=== PATIENT | male | born 1955 | race Hispanic/Latino ===

== ENCOUNTER 2021-12-02 13:01 | Inpatient (IN) | payer OTHER ==
[~2021-12-02] VITALS: Ht 172.7 cm; Wt 71.7 kg
[2021-12-02] MEDS ORDERED: DEXAMETHASONE SOD PHOS 10 MG/1 ML VIAL IV ONE (13:15)
[2021-12-02 13:31] LABS: BASOPHILS % 0.1 % (0.0-1.0); HEMATOCRIT 44.9 % (38.2-49.6); HEMOGLOBIN 14.4 g/dL (14.0-18.0); LYMPHOCYTES # (AUTO) 0.2 (1.0-3.2); LYMPHOCYTES % 1.1 % (18.0-39.1); MEAN CORPUSCULAR HGB CONC 32.1 g/dL (31-35); MEAN CORPUSCULAR VOLUME 96.6 fL (81-99); MONOCYTES # (AUTO) 0.3 (0.2-0.8); MONOCYTES % 1.7 % (4.4-11.3); NEUTROPHILS # (AUTO) 17.4 (2.1-6.9); NEUTROPHILS % 96.8 % (38.7-80.0); PLATELET COUNT 123 x10e3/uL (140-360); RED BLOOD COUNT 4.65 x10e6/uL (4.3-5.7); RED CELL DISTRIBUTION WIDTH 13.6 % (11.7-14.4)
[2021-12-02 13:50] LABS: ALBUMIN/GLOBULIN RATIO 0.7 (0.8-2.0); ANION GAP 23.6 mmol/L (8-16); CALCIUM 9.7 mg/dL (8.4-10.2); CREATININE, SERUM 2.07 mg/dL (0.72-1.25); POTASSIUM 4.6 mmol/L (3.5-5.1)
[2021-12-02] MEDS: DEXTROSE 5%/0.45% SOD CHL 1,000 ML IV SCH ×3 (14:30→22:07)
[2021-12-02] MEDS ORDERED: MAGNESIUM SULF 1GRAM/DEXTROSE 100 ML IV PRN (14:30)
[2021-12-02] MEDS ORDERED: POTASSIUM CHLORIDE 20MEQ/100ML 200 ML IV PRN (14:30)
[2021-12-02] MEDS ORDERED: INSULIN REGULAR, HUMAN 3ML VL 100 UNIT in SODIUM CHLORIDE 0.9% 99 ML IV SCH ×2 (14:45)
[2021-12-02] MEDS: SODIUM CHLORIDE 0.9% 1000ML 1,000 ML IV SCH ×2 (14:50→18:30)
[2021-12-02 15:09] LABS: ABG HCO3 23 mmol/L (22-26); ABG PCO2 32 mmHg (35-45); ABG PH 7.47 (7.35-7.45); ABG PO2 43 mmHg (80-105); ABG TCO2 24
[2021-12-02] MEDS ORDERED: CEFTRIAXONE 1 GM in SODIUM CHLORIDE 0.9% 50ML 50 ML IV SCH (16:00)
[2021-12-02] MEDS ORDERED: INSULIN REGULAR, HUMAN 100 UNIT/1 ML IV ONE (16:15)
[2021-12-02] MEDS: CEFTRIAXONE 2 GM in SODIUM CHLORIDE 0.9% 100 ML IV SCH (16:28)
[2021-12-02] MEDS ORDERED: DEXAMETHASONE 10MG/ML PF INJ IV ONE (16:30)
[2021-12-02] MEDS: ASCORBIC ACID 500 MG TAB PO SCH (16:45)
[2021-12-02] MEDS ORDERED: ENOXAPARIN INJ 80 MG/0.8 ML SYR SC SCH (17:00)
[2021-12-02] MEDS: ENOXAPARIN 30 MG/0.3 ML SYR SC SCH (17:57)
[2021-12-02] MEDS ORDERED: REMDESIVIR 100MG 200 MG in SODIUM CHLORIDE 0.9% 100 ML IV ONE (18:00)
[2021-12-02 18:40] LABS: ANION GAP 18.1 mmol/L (8-16); CALCIUM 7.6 mg/dL (8.4-10.2); CREATININE, SERUM 1.38 mg/dL (0.72-1.25); MAGNESIUM 2.2 MG/DL (1.3-2.1); POTASSIUM 3.1 mmol/L (3.5-5.1)
[2021-12-02] MEDS ORDERED: POTASSIUM CHLORIDE 20MEQ/100ML 100 ML IV ONE (20:15)
[2021-12-02] MEDS ORDERED: POTASSIUM CHLORIDE 20MEQ/100ML 100 ML ONE (20:16)
[2021-12-02] MEDS ORDERED: ACETAMINOPHEN 1000 MG/100 ML 100 ML IV ONE (20:56)
[2021-12-02] MEDS ORDERED: ACETAMINOPHEN 1000 MG/100 ML IV STA (21:07)
[2021-12-02] MEDS ORDERED: IBUPROFEN 800MG/ 200ML 800 MG in SODIUM CHLORIDE 0.9% 250ML 250 ML IV PRN (21:13)
[2021-12-02] MEDS ORDERED: IBUPROFEN 800MG/ 200ML 200 ML IV ONE (21:25)
[2021-12-02] MEDS: HUMAN IV SCH ×2 (22:00)
[2021-12-02] MEDS: [UNRECOGNIZED DRUG - OTHER] IV SCH ×2 (22:00)
[2021-12-02] MEDS: INSULIN REGULAR IV SCH ×2 (22:00)
[2021-12-02] MEDS: SODIUM CHLORIDE 0.9% IV SCH ×2 (22:00)
[2021-12-02] MEDS ORDERED: DEXTROSE 50% SYRINGE 50 ML IV PRN (22:15)
[2021-12-02] MEDS ORDERED: INSULIN REGULAR, HUMAN 3ML VL 100 UNIT in SODIUM CHLORIDE 0.45% 100 ML 100 ML IV SCH ×2 (22:15)
[2021-12-02 22:27] LABS: ANION GAP 20.7 mmol/L (8-16); CALCIUM 9.5 mg/dL (8.4-10.2); CREATININE, SERUM 1.75 mg/dL (0.72-1.25); MAGNESIUM 2.4 MG/DL (1.3-2.1); POTASSIUM 3.7 mmol/L (3.5-5.1)
[2021-12-03] VITALS (15 sets, daily range): BP systolic 107–164; BP diastolic 34–94
[2021-12-03] MEDS: SODIUM CHLORIDE 0.9% 1000ML 1,000 ML IV SCH ×4 (00:07→20:07)
[2021-12-03 02:26] LABS: ANION GAP 18.3 mmol/L (8-16); CALCIUM 9.5 mg/dL (8.4-10.2); CREATININE, SERUM 1.66 mg/dL (0.72-1.25); MAGNESIUM 2.5 MG/DL (1.3-2.1); POTASSIUM 4.3 mmol/L (3.5-5.1)
[2021-12-03] MEDS: SODIUM CHLORIDE 0.9% IV SCH ×2 (04:40)
[2021-12-03] MEDS: HUMAN IV SCH ×2 (04:40)
[2021-12-03] MEDS: [UNRECOGNIZED DRUG - OTHER] IV SCH ×2 (04:40)
[2021-12-03] MEDS: INSULIN REGULAR IV SCH ×2 (04:40)
[2021-12-03] MEDS ORDERED: INSULIN REGULAR IN 0.9 % NACL 100 ML IV ONE (04:43)
[2021-12-03 06:20] LABS: BASOPHILS % 0.2 % (0.0-1.0); HEMATOCRIT 40.3 % (38.2-49.6); HEMOGLOBIN 13.4 g/dL (14.0-18.0); LYMPHOCYTES # (AUTO) 0.1 (1.0-3.2); LYMPHOCYTES % 0.9 % (18.0-39.1); MEAN CORPUSCULAR HEMOGLOBIN 31.1 pg (28-32); MEAN CORPUSCULAR HGB CONC 33.3 g/dL (31-35); MEAN CORPUSCULAR VOLUME 93.5 fL (81-99); MONOCYTES # (AUTO) 0.2 (0.2-0.8); MONOCYTES % 0.9 % (4.4-11.3); NEUTROPHILS % 97.6 % (38.7-80.0); PLATELET COUNT 98 x10e3/uL (140-360); RED BLOOD COUNT 4.31 x10e6/uL (4.3-5.7); RED CELL DISTRIBUTION WIDTH 13.5 % (11.7-14.4)
[2021-12-03 06:40] LABS: CALCIUM 9.6 mg/dL (8.4-10.2); CREATININE, SERUM 1.62 mg/dL (0.72-1.25); MAGNESIUM 2.6 MG/DL (1.3-2.1)
[2021-12-03] MEDS: ASCORBIC ACID 500 MG TAB PO SCH ×2 (09:41→18:17)
[2021-12-03] MEDS: DEXAMETHASONE SOD PHOS 10 MG/1 ML VIAL IV SCH (09:41)
[2021-12-03] MEDS: ZINC SULFATE 50 MG CAP PO SCH (09:41)
[2021-12-03] MEDS: DEXTROSE 5%/0.45% SOD CHL 1,000 ML IV SCH ×2 (09:41→18:19)
[2021-12-03 11:27] LABS: BAND NEUTROPHILS % (MANUAL) 4 %; LYMPHOCYTES % (MANUAL) 1 % (19-48); NEUTROPHILS % (MANUAL) 95 % (40-74); PLATELET ESTIMATE MODERATELY DECREASED; PLATELET MORPHOLOGY COMMENT NORMAL
[2021-12-03 11:28] LABS: RBC MORPHOLOGY COMMENT NORMAL
[2021-12-03 12:16] LABS: ALBUMIN 2.4 g/dL (3.5-5.0); ALBUMIN/GLOBULIN RATIO 0.6 (0.8-2.0); CALCIUM 9.6 mg/dL (8.4-10.2); CREATININE, SERUM 1.71 mg/dL (0.72-1.25)
[2021-12-03] MEDS ORDERED: PHENYLEPHRINE 10MG/ML VIAL 40 MG in DEXTROSE 5% 250ML 246 ML IV SCH (14:15)
[2021-12-03] MEDS: REMDESIVIR 100MG 100 MG in SODIUM CHLORIDE 0.9% 100 ML IV SCH (14:58)
[2021-12-03] MEDS ORDERED: FLOMAX0.4 MG PO (15:53)
[2021-12-03] MEDS ORDERED: LEVOTHYROXINE50 MCG PO (15:53)
[2021-12-03] MEDS ORDERED: COREG3.125 MG PO (15:53)
[2021-12-03] MEDS ORDERED: WARFARIN SODIUM2 MG PO (15:53)
[2021-12-03] MEDS: DEXMEDETOMIDINE 400MCG/NS100ML 100 ML IV PRN (16:00)
[2021-12-03 17:34] LABS: CALCIUM 9.6 mg/dL (8.4-10.2); CREATININE, SERUM 1.63 mg/dL (0.72-1.25)
[2021-12-03] MEDS: CEFTRIAXONE 2 GM in SODIUM CHLORIDE 0.9% 100 ML IV SCH (18:15)
[2021-12-03] MEDS: ENOXAPARIN 30 MG/0.3 ML SYR SC SCH (18:19)
[2021-12-03 19:31] LABS: ANION GAP 16.1 mmol/L (8-16); CALCIUM 9.3 mg/dL (8.4-10.2); CREATININE, SERUM 1.6 mg/dL (0.72-1.25); MAGNESIUM 2.5 MG/DL (1.3-2.1); POTASSIUM 4.1 mmol/L (3.5-5.1)
[2021-12-04] VITALS (25 sets, daily range): BP systolic 125–165; BP diastolic 52–91
[2021-12-04 00:47] LABS: ANION GAP 14.2 mmol/L (8-16); CALCIUM 9.4 mg/dL (8.4-10.2); CREATININE, SERUM 1.52 mg/dL (0.72-1.25); MAGNESIUM 2.4 MG/DL (1.3-2.1); POTASSIUM 4.2 mmol/L (3.5-5.1)
[2021-12-04] MEDS: SODIUM CHLORIDE 0.9% 1000ML 1,000 ML IV SCH ×3 (02:47→16:07)
[2021-12-04] MEDS: DEXMEDETOMIDINE 400MCG/NS100ML 100 ML IV PRN (04:07)
[2021-12-04] MEDS: DEXTROSE 5%/0.45% SOD CHL 1,000 ML IV SCH ×2 (04:33→15:57)
[2021-12-04 06:00] LABS: BASOPHILS % 0.2 % (0.0-1.0); HEMATOCRIT 39.2 % (38.2-49.6); HEMOGLOBIN 12.3 g/dL (14.0-18.0); LYMPHOCYTES # (AUTO) 0.1 (1.0-3.2); LYMPHOCYTES % 1.1 % (18.0-39.1); MEAN CORPUSCULAR HEMOGLOBIN 31.1 pg (28-32); MEAN CORPUSCULAR HGB CONC 31.4 g/dL (31-35); MONOCYTES # (AUTO) 0.2 (0.2-0.8); NEUTROPHILS # (AUTO) 11.4 (2.1-6.9); NEUTROPHILS % 96.4 % (38.7-80.0); PLATELET COUNT 85 x10e3/uL (140-360); RED BLOOD COUNT 3.95 x10e6/uL (4.3-5.7); RED CELL DISTRIBUTION WIDTH 13.7 % (11.7-14.4)
[2021-12-04 06:19] LABS: ALBUMIN 2.1 g/dL (3.5-5.0); ALBUMIN/GLOBULIN RATIO 0.6 (0.8-2.0); ANION GAP 16.2 mmol/L (8-16); CALCIUM 7.9 mg/dL (8.4-10.2); CREATININE, SERUM 1.33 mg/dL (0.72-1.25); POTASSIUM 5.2 mmol/L (3.5-5.1)
[2021-12-04] MEDS ORDERED: PRAVASTATIN SOD40 MG PO (07:33)
[2021-12-04] MEDS ORDERED: VITAMIN D3 COM1 EACH (07:33)
[2021-12-04] MEDS ORDERED: PREDNISONE5 MG PO (07:33)
[2021-12-04] MEDS ORDERED: GABAPENTIN300 MG PO (07:33)
[2021-12-04] MEDS ORDERED: ALLOPURINOL300 MG PO (07:33)
[2021-12-04] MEDS ORDERED: CLONIDINE HCL0.1 MG PO (07:33)
[2021-12-04] MEDS: DEXAMETHASONE SOD PHOS 10 MG/1 ML VIAL IV SCH (08:01)
[2021-12-04] MEDS: ZINC SULFATE 50 MG CAP PO SCH (08:01)
[2021-12-04] MEDS: ASCORBIC ACID 500 MG TAB PO SCH ×2 (08:01→17:00)
[2021-12-04 09:11] LABS: ALBUMIN 2.1 g/dL (3.5-5.0); ALBUMIN/GLOBULIN RATIO 0.6 (0.8-2.0); ANION GAP 13.3 mmol/L (8-16); CALCIUM 9.1 mg/dL (8.4-10.2); CREATININE, SERUM 1.28 mg/dL (0.72-1.25); POTASSIUM 4.3 mmol/L (3.5-5.1)
[2021-12-04] MEDS ORDERED: HEPARIN 25,000 UNIT 800 UNIT in DEXTROSE 5% 250ML 250 ML IV SCH (10:30)
[2021-12-04 12:33] LABS: ANION GAP 14.2 mmol/L (8-16); CALCIUM 9.2 mg/dL (8.4-10.2); CREATININE, SERUM 1.23 mg/dL (0.72-1.25); INR 5.16; MAGNESIUM 2.5 MG/DL (1.3-2.1); PARTIAL THROMBOPLASTIN TIME 64.8 seconds (23.8-35.5); POTASSIUM 4.2 mmol/L (3.5-5.1); PROTHROMBIN TIME 50.1 seconds (11.9-14.5)
[2021-12-04 12:41] LABS: CLARITY,URINE CLOUDY (CLEAR); COLOR,URINE YELLOW (YELLOW); KETONES,URINE NEGATIVE (NEGATIVE); LEUKOCYTE ESTERASE ,URINE NEGATIVE (NEGATIVE); NITRITE,URINE NEGATIVE (NEGATIVE); PROTEIN,URINE DIPSTICK 1+ (NEGATIVE); URINE UROBILINOGEN 0.2 mg/dL (0.2 - 1)
[2021-12-04 12:42] LABS: BACTERIA,URINE FEW /HPF; EPITHELIAL CELLS,URINE FEW /LPF; RBC,URINE >50 /HPF (0-5); WBC,URINE (MAN) 0-5 /HPF (0-5)
[2021-12-04] MEDS: LEVOTHYROXINE SODIUM 50 MCG TAB PO SCH (12:43)
[2021-12-04] MEDS ORDERED: FUROSEMIDE INJ 10 MG/ML 2 ML VIAL IV ONE (13:45)
[2021-12-04] MEDS: REMDESIVIR 100MG 100 MG in SODIUM CHLORIDE 0.9% 100 ML IV SCH (14:05)
[2021-12-04] MEDS: CARVEDILOL 3.125 MG TAB PO SCH ×2 (17:00→17:03)
[2021-12-04] MEDS ORDERED: ONDANSETRON HCL INJ 2MG/ML 2ML 2 MG/ML VIAL IV ONE (17:30)
[2021-12-04] MEDS: CEFTRIAXONE 2 GM in SODIUM CHLORIDE 0.9% 100 ML IV SCH (17:34)
[2021-12-04 18:00] LABS: BASOPHILS % 0.1 % (0.0-1.0); HEMATOCRIT 41.3 % (38.2-49.6); LYMPHOCYTES # (AUTO) 0.1 (1.0-3.2); LYMPHOCYTES % 0.7 % (18.0-39.1); MEAN CORPUSCULAR HGB CONC 31.5 g/dL (31-35); MEAN CORPUSCULAR VOLUME 98.3 fL (81-99); MONOCYTES # (AUTO) 0.3 (0.2-0.8); NEUTROPHILS # (AUTO) 13.7 (2.1-6.9); NEUTROPHILS % 96.6 % (38.7-80.0); PLATELET COUNT 94 x10e3/uL (140-360); RED CELL DISTRIBUTION WIDTH 13.9 % (11.7-14.4)
[2021-12-04 19:42] LABS: ANION GAP 16.8 mmol/L (8-16); CALCIUM 9.2 mg/dL (8.4-10.2); CREATININE, SERUM 1.21 mg/dL (0.72-1.25); MAGNESIUM 2.3 MG/DL (1.3-2.1); POTASSIUM 3.8 mmol/L (3.5-5.1)
[2021-12-04] MEDS ORDERED: SODIUM CHLORIDE 0.9% 250ML 250 ML ONE (20:42)
[2021-12-04] MEDS ORDERED: FUROSEMIDE INJ 10 MG/ML 4 ML VIAL IV ONE (22:00)
[2021-12-05] VITALS (25 sets, daily range): BP systolic 114–175; BP diastolic 45–83
[2021-12-05] MEDS ORDERED: SODIUM CHLORIDE 0.9% 250ML 250 ML ONE ×2 (00:04→23:15)
[2021-12-05] MEDS ORDERED: METOCLOPRAMIDE HCL 10 MG/2ML VIAL ONE (03:09)
[2021-12-05] MEDS ORDERED: SODIUM CHLORIDE 0.9% 100 ML ONE (03:10)
[2021-12-05] MEDS ORDERED: METOCLOPRAMIDE HCL 10 MG/2ML VIAL IV ONE (03:15)
[2021-12-05 03:56] LABS: INR 3.44; PROTHROMBIN TIME 36.5 seconds (11.9-14.5)
[2021-12-05 03:57] LABS: ANION GAP 14.1 mmol/L (8-16); CALCIUM 8.6 mg/dL (8.4-10.2); CREATININE, SERUM 1.44 mg/dL (0.72-1.25); MAGNESIUM 2.1 MG/DL (1.3-2.1); POTASSIUM 4.1 mmol/L (3.5-5.1)
[2021-12-05 03:57] LABS: PARTIAL THROMBOPLASTIN TIME 48.2 seconds (23.8-35.5)
[2021-12-05 04:48] LABS: BASOPHILS % 0.1 % (0.0-1.0); HEMATOCRIT 28.6 % (38.2-49.6); HEMOGLOBIN 8.8 g/dL (14.0-18.0); LYMPHOCYTES # (AUTO) 0.1 (1.0-3.2); LYMPHOCYTES % 0.8 % (18.0-39.1); MEAN CORPUSCULAR HEMOGLOBIN 31.3 pg (28-32); MEAN CORPUSCULAR HGB CONC 30.8 g/dL (31-35); MEAN CORPUSCULAR VOLUME 101.8 fL (81-99); MONOCYTES # (AUTO) 0.6 (0.2-0.8); MONOCYTES % 3.6 % (4.4-11.3); NEUTROPHILS # (AUTO) 14.6 (2.1-6.9); PLATELET COUNT 98 x10e3/uL (140-360); RED BLOOD COUNT 2.81 x10e6/uL (4.3-5.7)
[2021-12-05] MEDS: DEXTROSE 5%/0.45% SOD CHL 1,000 ML IV SCH ×2 (05:22→09:13)
[2021-12-05] MEDS: Pantoprazole IV 80 MG in SODIUM CHLORIDE 0.9% 100 ML IV SCH ×4 (05:24→23:49)
[2021-12-05] MEDS: SODIUM CHLORIDE 0.9% 1000ML 1,000 ML IV SCH ×3 (05:58→12:07)
[2021-12-05] MEDS: LEVOTHYROXINE SODIUM 50 MCG TAB PO SCH (05:58)
[2021-12-05] MEDS: DEXAMETHASONE SOD PHOS 10 MG/1 ML VIAL IV SCH (09:12)
[2021-12-05] MEDS: ASCORBIC ACID 500 MG TAB PO SCH ×2 (09:12→17:49)
[2021-12-05] MEDS: CARVEDILOL 3.125 MG TAB PO SCH ×2 (09:12→17:49)
[2021-12-05 09:13] LABS: BASOPHILS % 0.1 % (0.0-1.0); HEMATOCRIT 28.6 % (38.2-49.6); HEMOGLOBIN 8.9 g/dL (14.0-18.0); LYMPHOCYTES # (AUTO) 0.1 (1.0-3.2); LYMPHOCYTES % 0.6 % (18.0-39.1); MEAN CORPUSCULAR HGB CONC 31.1 g/dL (31-35); MEAN CORPUSCULAR VOLUME 99.7 fL (81-99); MONOCYTES # (AUTO) 0.6 (0.2-0.8); MONOCYTES % 3.6 % (4.4-11.3); NEUTROPHILS # (AUTO) 14.5 (2.1-6.9); NEUTROPHILS % 94.9 % (38.7-80.0); PLATELET COUNT 112 x10e3/uL (140-360); RED BLOOD COUNT 2.87 x10e6/uL (4.3-5.7); RED CELL DISTRIBUTION WIDTH 13.8 % (11.7-14.4)
[2021-12-05] MEDS: ZINC SULFATE 50 MG CAP PO SCH (09:13)
[2021-12-05] MEDS: ALLOPURINOL 300 MG TAB PO SCH (09:13)
[2021-12-05 09:36] LABS: ALBUMIN/GLOBULIN RATIO 0.7 (0.8-2.0); CALCIUM 8.3 mg/dL (8.4-10.2); CREATININE, SERUM 1.47 mg/dL (0.72-1.25)
[2021-12-05] MEDS ORDERED: SODIUM CHLORIDE 0.9% 50ML 50 ML ONE (10:09)
[2021-12-05] MEDS: METOCLOPRAMIDE HCL 10 MG/2ML VIAL IV SCH ×3 (12:10→23:49)
[2021-12-05] MEDS: REMDESIVIR 100MG 100 MG in SODIUM CHLORIDE 0.9% 100 ML IV SCH (14:09)
[2021-12-05 14:13] LABS: BASOPHILS % 0.1 % (0.0-1.0); HEMATOCRIT 27.6 % (38.2-49.6); HEMOGLOBIN 8.3 g/dL (14.0-18.0); LYMPHOCYTES # (AUTO) 0.1 (1.0-3.2); LYMPHOCYTES % 0.5 % (18.0-39.1); MEAN CORPUSCULAR HEMOGLOBIN 30.2 pg (28-32); MEAN CORPUSCULAR HGB CONC 30.1 g/dL (31-35); MEAN CORPUSCULAR VOLUME 100.4 fL (81-99); MONOCYTES # (AUTO) 0.5 (0.2-0.8); MONOCYTES % 3.5 % (4.4-11.3); NEUTROPHILS # (AUTO) 12.1 (2.1-6.9); NEUTROPHILS % 95.4 % (38.7-80.0); PLATELET COUNT 88 x10e3/uL (140-360); RED BLOOD COUNT 2.75 x10e6/uL (4.3-5.7); RED CELL DISTRIBUTION WIDTH 14.1 % (11.7-14.4)
[2021-12-05 14:24] LABS: INR 2.68
[2021-12-05 14:33] LABS: ALBUMIN 2.4 g/dL (3.5-5.0); ALBUMIN/GLOBULIN RATIO 0.8 (0.8-2.0); ANION GAP 12.9 mmol/L (8-16); CALCIUM 8.9 mg/dL (8.4-10.2); CREATININE, SERUM 1.5 mg/dL (0.72-1.25); POTASSIUM 3.9 mmol/L (3.5-5.1)
[2021-12-05] MEDS: CEFTRIAXONE 2 GM in SODIUM CHLORIDE 0.9% 100 ML IV SCH (17:49)
[2021-12-06] VITALS (24 sets, daily range): BP systolic 134–164; BP diastolic 64–91
[2021-12-06] MEDS ORDERED: SODIUM CHLORIDE 0.9% 100 ML ONE (00:59)
[2021-12-06] MEDS ORDERED: INSULIN REGULAR, HUMAN 100 UNIT/1 ML ONE (00:59)
[2021-12-06 01:00] LABS: INR 2.72; PROTHROMBIN TIME 30.4 seconds (11.9-14.5)
[2021-12-06] MEDS ORDERED: SODIUM CHLORIDE 0.9% 250ML 250 ML ONE (05:29)
[2021-12-06 06:01] LABS: BASOPHILS % 0.1 % (0.0-1.0); HEMATOCRIT 27.9 % (38.2-49.6); HEMOGLOBIN 8.5 g/dL (14.0-18.0); LYMPHOCYTES # (AUTO) 0.1 (1.0-3.2); LYMPHOCYTES % 1.2 % (18.0-39.1); MEAN CORPUSCULAR HEMOGLOBIN 29.8 pg (28-32); MEAN CORPUSCULAR HGB CONC 30.5 g/dL (31-35); MEAN CORPUSCULAR VOLUME 97.9 fL (81-99); MONOCYTES # (AUTO) 0.3 (0.2-0.8); MONOCYTES % 4.7 % (4.4-11.3); NEUTROPHILS # (AUTO) 6.4 (2.1-6.9); NEUTROPHILS % 93.6 % (38.7-80.0); PLATELET COUNT 61 x10e3/uL (140-360); RED BLOOD COUNT 2.85 x10e6/uL (4.3-5.7); RED CELL DISTRIBUTION WIDTH 17.2 % (11.7-14.4)
[2021-12-06] MEDS: METOCLOPRAMIDE HCL 10 MG/2ML VIAL IV SCH ×3 (06:11→17:36)
[2021-12-06] MEDS: LEVOTHYROXINE SODIUM 50 MCG TAB PO SCH (06:11)
[2021-12-06] MEDS: CARVEDILOL 3.125 MG TAB PO SCH ×2 (06:15→15:56)
[2021-12-06 06:44] LABS: ALBUMIN 2.3 g/dL (3.5-5.0); ALBUMIN/GLOBULIN RATIO 0.8 (0.8-2.0); ANION GAP 12.1 mmol/L (8-16); CREATININE, SERUM 1.37 mg/dL (0.72-1.25); POTASSIUM 4.1 mmol/L (3.5-5.1)
[2021-12-06] MEDS: ASCORBIC ACID 500 MG TAB PO SCH ×2 (09:00→15:56)
[2021-12-06] MEDS: ALLOPURINOL 300 MG TAB PO SCH (09:00)
[2021-12-06] MEDS: ZINC SULFATE 50 MG CAP PO SCH (09:00)
[2021-12-06] MEDS: DEXAMETHASONE SOD PHOS 10 MG/1 ML VIAL IV SCH (09:45)
[2021-12-06] MEDS ORDERED: STERILE WATER IV SCH (10:15)
[2021-12-06] MEDS: DEXMEDETOMIDINE 400MCG/NS100ML 100 ML IV PRN (10:53)
[2021-12-06] MEDS ORDERED: DEXTROSE 5% 1,000 ML IV SCH (12:00)
[2021-12-06] MEDS: Pantoprazole IV 80 MG in SODIUM CHLORIDE 0.9% 100 ML IV SCH ×2 (12:47→20:42)
[2021-12-06] MEDS: REMDESIVIR 100MG 100 MG in SODIUM CHLORIDE 0.9% 100 ML IV SCH (14:41)
[2021-12-06] MEDS: DEXTROSE 5% 1,000 ML IV SCH (14:41)
[2021-12-06] MEDS: CEFTRIAXONE 2 GM in SODIUM CHLORIDE 0.9% 100 ML IV SCH (15:55)
[2021-12-06 16:11] LABS: ALBUMIN 2.5 g/dL (3.5-5.0); ALBUMIN/GLOBULIN RATIO 0.9 (0.8-2.0); CALCIUM 8.6 mg/dL (8.4-10.2); CREATININE, SERUM 1.27 mg/dL (0.72-1.25)
[2021-12-06 20:12] LABS: ABG HCO3 27 mmol/L (22-26); ABG PCO2 45 mmHg (35-45); ABG PH 7.38 (7.35-7.45); ABG PO2 169 mmHg (80-105); ABG TCO2 28
[2021-12-06] MEDS ORDERED: ZIPRASIDONE 20 MG VIAL IM STA (20:16)
[2021-12-07] VITALS (25 sets, daily range): BP systolic 139–188; BP diastolic 58–96
[2021-12-07 00:31] LABS: INR 2.56; PARTIAL THROMBOPLASTIN TIME 34.7 seconds (23.8-35.5)
[2021-12-07] MEDS: DEXTROSE 5% 1,000 ML IV SCH ×3 (00:31→21:12)
[2021-12-07] MEDS: METOCLOPRAMIDE HCL 10 MG/2ML VIAL IV SCH ×4 (00:33→16:59)
[2021-12-07] MEDS ORDERED: PHYTONADIONE 10 MG/ML AMP IV ONE ×2 (01:00→08:30)
[2021-12-07] MEDS ORDERED: PHYTONADIONE 10MG/ML 20 MG in SODIUM CHLORIDE 0.9% 50ML 50 ML IV ONE ×2 (01:15→08:45)
[2021-12-07] MEDS: LEVOTHYROXINE SODIUM 50 MCG TAB PO SCH (04:41)
[2021-12-07] MEDS: Pantoprazole IV 80 MG in SODIUM CHLORIDE 0.9% 100 ML IV SCH ×2 (04:41→15:00)
[2021-12-07 05:06] LABS: HEMATOCRIT 25.9 % (38.2-49.6); LYMPHOCYTES # (AUTO) 0.1 (1.0-3.2); LYMPHOCYTES % 1.3 % (18.0-39.1); MEAN CORPUSCULAR HEMOGLOBIN 30.3 pg (28-32); MEAN CORPUSCULAR HGB CONC 30.9 g/dL (31-35); MEAN CORPUSCULAR VOLUME 98.1 fL (81-99); MONOCYTES # (AUTO) 0.3 (0.2-0.8); MONOCYTES % 4.6 % (4.4-11.3); NEUTROPHILS # (AUTO) 6.3 (2.1-6.9); NEUTROPHILS % 93.7 % (38.7-80.0); PLATELET COUNT 50 x10e3/uL (140-360); RED BLOOD COUNT 2.64 x10e6/uL (4.3-5.7); RED CELL DISTRIBUTION WIDTH 17.5 % (11.7-14.4)
[2021-12-07] MEDS: HYDRALAZINE HCL 20 MG/ML VIAL IV PRN ×4 (06:17→21:13)
[2021-12-07] MEDS: DEXMEDETOMIDINE 400MCG/NS100ML 100 ML IV PRN (07:11)
[2021-12-07 07:17] LABS: INR 2.12
[2021-12-07 07:37] LABS: ALBUMIN 2.5 g/dL (3.5-5.0); ALBUMIN/GLOBULIN RATIO 0.9 (0.8-2.0); CALCIUM 8.8 mg/dL (8.4-10.2); CREATININE, SERUM 1.16 mg/dL (0.72-1.25)
[2021-12-07] MEDS ORDERED: FUROSEMIDE INJ 10 MG/ML 4 ML VIAL IV ONE (08:15)
[2021-12-07] MEDS ORDERED: CHLOROTHIAZIDE SODIUM 500 MG VIAL IV ONE (08:25)
[2021-12-07] MEDS: DEXAMETHASONE SOD PHOS 10 MG/1 ML VIAL IV SCH (08:31)
[2021-12-07] MEDS: ASCORBIC ACID 500 MG TAB PO SCH ×2 (09:00→16:59)
[2021-12-07] MEDS: ZINC SULFATE 50 MG CAP PO SCH (09:00)
[2021-12-07] MEDS: CARVEDILOL 3.125 MG TAB PO SCH ×2 (10:52→16:23)
[2021-12-07] MEDS: ALLOPURINOL 300 MG TAB PO SCH (10:57)
[2021-12-07] MEDS: HYDRALAZINE HCL 25 MG TAB PO SCH ×2 (10:57→16:23)
[2021-12-07 12:31] LABS: ALBUMIN 2.7 g/dL (3.5-5.0); ALBUMIN/GLOBULIN RATIO 0.9 (0.8-2.0); ANION GAP 12.5 mmol/L (8-16); CALCIUM 8.8 mg/dL (8.4-10.2); CREATININE, SERUM 1.29 mg/dL (0.72-1.25); POTASSIUM 3.5 mmol/L (3.5-5.1)
[2021-12-07] MEDS ORDERED: SODIUM CHLORIDE 0.9% 100 ML ONE (15:10)
[2021-12-07] MEDS ORDERED: POTASSIUM CHLORIDE 20 MEQ TAB CR PO NR (15:15)
[2021-12-07] MEDS: CEFTRIAXONE 2 GM in SODIUM CHLORIDE 0.9% 100 ML IV SCH (16:23)
[2021-12-07 19:42] LABS: ALBUMIN 2.6 g/dL (3.5-5.0); ALBUMIN/GLOBULIN RATIO 0.8 (0.8-2.0); ANION GAP 14.4 mmol/L (8-16); CREATININE, SERUM 1.33 mg/dL (0.72-1.25); POTASSIUM 3.4 mmol/L (3.5-5.1)
[2021-12-08] VITALS (28 sets, daily range): BP systolic 115–192; BP diastolic 49–87
[2021-12-08] MEDS: HYDRALAZINE HCL 20 MG/ML VIAL IV PRN ×3 (01:16→13:52)
[2021-12-08] MEDS: METOCLOPRAMIDE HCL 10 MG/2ML VIAL IV SCH ×5 (01:17→23:26)
[2021-12-08] MEDS: Pantoprazole IV 80 MG in SODIUM CHLORIDE 0.9% 100 ML IV SCH ×3 (01:17→21:00)
[2021-12-08 04:49] LABS: BASOPHILS % 0.1 % (0.0-1.0); HEMATOCRIT 34.2 % (38.2-49.6); HEMOGLOBIN 10.4 g/dL (14.0-18.0); LYMPHOCYTES # (AUTO) 0.1 (1.0-3.2); LYMPHOCYTES % 0.7 % (18.0-39.1); MEAN CORPUSCULAR HEMOGLOBIN 29.6 pg (28-32); MEAN CORPUSCULAR HGB CONC 30.4 g/dL (31-35); MEAN CORPUSCULAR VOLUME 97.4 fL (81-99); MONOCYTES # (AUTO) 0.6 (0.2-0.8); MONOCYTES % 3.6 % (4.4-11.3); NEUTROPHILS # (AUTO) 14.4 (2.1-6.9); NEUTROPHILS % 94.2 % (38.7-80.0); PLATELET COUNT 114 x10e3/uL (140-360); RED BLOOD COUNT 3.51 x10e6/uL (4.3-5.7); RED CELL DISTRIBUTION WIDTH 17.1 % (11.7-14.4)
[2021-12-08 04:59] LABS: INR 1.38; PROTHROMBIN TIME 17.9 seconds (11.9-14.5)
[2021-12-08 05:06] LABS: ALBUMIN 2.7 g/dL (3.5-5.0); ALBUMIN/GLOBULIN RATIO 0.8 (0.8-2.0); ANION GAP 13.5 mmol/L (8-16); CALCIUM 9.3 mg/dL (8.4-10.2); CREATININE, SERUM 1.35 mg/dL (0.72-1.25); POTASSIUM 3.5 mmol/L (3.5-5.1)
[2021-12-08] MEDS: LEVOTHYROXINE SODIUM 50 MCG TAB PO SCH (06:30)
[2021-12-08] MEDS: CARVEDILOL 3.125 MG TAB PO SCH ×2 (08:00→17:34)
[2021-12-08] MEDS: DEXAMETHASONE SOD PHOS 10 MG/1 ML VIAL IV SCH (08:04)
[2021-12-08] MEDS: ALLOPURINOL 300 MG TAB PO SCH (09:00)
[2021-12-08] MEDS: HYDRALAZINE HCL 25 MG TAB PO SCH ×2 (09:00→17:30)
[2021-12-08] MEDS: ASCORBIC ACID 500 MG TAB PO SCH ×2 (09:00→17:31)
[2021-12-08] MEDS: DEXTROSE 5% 1,000 ML IV SCH ×2 (10:16→19:23)
[2021-12-08] MEDS ORDERED: POTASSIUM CHLORIDE 20MEQ/100ML 100 ML IV ONE (10:30)
[2021-12-08] MEDS ORDERED: FUROSEMIDE INJ 10 MG/ML 4 ML VIAL IV ONE (10:30)
[2021-12-08] MEDS ORDERED: SODIUM CHLORIDE 0.9% 100 ML ONE (11:53)
[2021-12-08 14:49] LABS: ALBUMIN 2.7 g/dL (3.5-5.0); ALBUMIN/GLOBULIN RATIO 0.8 (0.8-2.0); ANION GAP 14.7 mmol/L (8-16); CALCIUM 9.2 mg/dL (8.4-10.2); CREATININE, SERUM 1.38 mg/dL (0.72-1.25); POTASSIUM 3.7 mmol/L (3.5-5.1)
[2021-12-08] MEDS ORDERED: MYCOPHENOLATE MOFETIL 250 MG CAP PO SCH (17:00)
[2021-12-08] MEDS: CEFTRIAXONE 2 GM in SODIUM CHLORIDE 0.9% 100 ML IV SCH (17:00)
[2021-12-08] MEDS: ZINC SULFATE 50 MG CAP PO SCH (17:30)
[2021-12-08 19:18] LABS: ALBUMIN 2.5 g/dL (3.5-5.0); ALBUMIN/GLOBULIN RATIO 0.8 (0.8-2.0); ANION GAP 14.6 mmol/L (8-16); CREATININE, SERUM 1.43 mg/dL (0.72-1.25); POTASSIUM 3.6 mmol/L (3.5-5.1)
[2021-12-08] MEDS: [UNRECOGNIZED DRUG - OTHER] IV SCH ×2 (19:40)
[2021-12-08] MEDS: INSULIN REGULAR IV SCH ×2 (19:40)
[2021-12-08] MEDS: HUMAN IV SCH ×2 (19:40)
[2021-12-08] MEDS: SODIUM CHLORIDE 0.9% IV SCH ×2 (19:40)
[2021-12-09] VITALS (30 sets, daily range): BP systolic 127–171; BP diastolic 56–75
[2021-12-09] MEDS: HYDRALAZINE HCL 20 MG/ML VIAL IV PRN (03:14)
[2021-12-09 05:06] LABS: BASOPHILS % 0.2 % (0.0-1.0); HEMATOCRIT 33.3 % (38.2-49.6); LYMPHOCYTES # (AUTO) 0.1 (1.0-3.2); LYMPHOCYTES % 0.9 % (18.0-39.1); MEAN CORPUSCULAR HEMOGLOBIN 29.8 pg (28-32); MEAN CORPUSCULAR VOLUME 99.1 fL (81-99); MONOCYTES # (AUTO) 0.5 (0.2-0.8); MONOCYTES % 3.1 % (4.4-11.3); NEUTROPHILS # (AUTO) 13.8 (2.1-6.9); NEUTROPHILS % 93.9 % (38.7-80.0); PLATELET COUNT 96 x10e3/uL (140-360); RED BLOOD COUNT 3.36 x10e6/uL (4.3-5.7); RED CELL DISTRIBUTION WIDTH 16.8 % (11.7-14.4)
[2021-12-09 05:15] LABS: INR 1.34; PROTHROMBIN TIME 17.5 seconds (11.9-14.5)
[2021-12-09] MEDS: LEVOTHYROXINE SODIUM 50 MCG TAB PO SCH (05:15)
[2021-12-09] MEDS: METOCLOPRAMIDE HCL 10 MG/2ML VIAL IV SCH ×3 (05:15→17:08)
[2021-12-09 05:29] LABS: ALBUMIN 2.4 g/dL (3.5-5.0); ALBUMIN/GLOBULIN RATIO 0.8 (0.8-2.0); ANION GAP 13.6 mmol/L (8-16); CALCIUM 8.8 mg/dL (8.4-10.2); CREATININE, SERUM 1.64 mg/dL (0.72-1.25); POTASSIUM 3.6 mmol/L (3.5-5.1)
[2021-12-09] MEDS: Pantoprazole IV 80 MG in SODIUM CHLORIDE 0.9% 100 ML IV SCH ×2 (08:14→17:04)
[2021-12-09] MEDS: CARVEDILOL 3.125 MG TAB PO SCH ×2 (08:15→17:05)
[2021-12-09] MEDS: DEXAMETHASONE SOD PHOS 10 MG/1 ML VIAL IV SCH (08:16)
[2021-12-09] MEDS: DEXTROSE 5% 1,000 ML IV SCH (08:17)
[2021-12-09] MEDS: HYDRALAZINE HCL 25 MG TAB PO SCH ×2 (09:00→18:33)
[2021-12-09] MEDS ORDERED: POTASSIUM CHLORIDE 20MEQ/100ML 200 ML IV ONE (09:15)
[2021-12-09] MEDS ORDERED: FUROSEMIDE INJ 10 MG/ML 4 ML VIAL IV ONE ×2 (09:15→18:00)
[2021-12-09] MEDS: ALLOPURINOL 300 MG TAB PO SCH (09:33)
[2021-12-09] MEDS: ASCORBIC ACID 500 MG TAB PO SCH ×2 (09:33→17:05)
[2021-12-09] MEDS: ZINC SULFATE 50 MG CAP PO SCH (09:33)
[2021-12-09 15:41] LABS: ALBUMIN 2.4 g/dL (3.5-5.0); ALBUMIN/GLOBULIN RATIO 0.8 (0.8-2.0); ANION GAP 13.3 mmol/L (8-16); CALCIUM 8.5 mg/dL (8.4-10.2); CREATININE, SERUM 1.64 mg/dL (0.72-1.25); POTASSIUM 4.3 mmol/L (3.5-5.1)
[2021-12-09] MEDS: CEFTRIAXONE 2 GM in SODIUM CHLORIDE 0.9% 100 ML IV SCH (17:04)
[2021-12-09] MEDS: MYCOPHENOLATE MOFETIL 250 MG CAP NG SCH (17:05)
[2021-12-10] VITALS (44 sets, daily range): BP systolic 91–182; BP diastolic 50–73
[2021-12-10] MEDS: METOCLOPRAMIDE HCL 10 MG/2ML VIAL IV SCH ×4 (00:24→20:29)
[2021-12-10] MEDS: DEXTROSE 5% 1,000 ML IV SCH ×2 (03:03→22:21)
[2021-12-10] MEDS: Pantoprazole IV 80 MG in SODIUM CHLORIDE 0.9% 100 ML IV SCH ×3 (03:13→18:35)
[2021-12-10] MEDS ORDERED: MAGNESIUM HYDROXIDE 30 ML UDC NG ONE (03:15)
[2021-12-10] MEDS ORDERED: MAGNESIUM HYDROXIDE 30 ML UDC ONE (03:26)
[2021-12-10] MEDS: HYDRALAZINE HCL 20 MG/ML VIAL IV PRN (04:30)
[2021-12-10] MEDS: LEVOTHYROXINE SODIUM 50 MCG TAB PO SCH (05:04)
[2021-12-10 05:48] LABS: BASOPHILS % 0.1 % (0.0-1.0); HEMATOCRIT 32.4 % (38.2-49.6); HEMOGLOBIN 10.1 g/dL (14.0-18.0); LYMPHOCYTES # (AUTO) 0.2 (1.0-3.2); LYMPHOCYTES % 1.3 % (18.0-39.1); MEAN CORPUSCULAR HEMOGLOBIN 30.1 pg (28-32); MEAN CORPUSCULAR HGB CONC 31.2 g/dL (31-35); MEAN CORPUSCULAR VOLUME 96.7 fL (81-99); MONOCYTES # (AUTO) 0.4 (0.2-0.8); NEUTROPHILS # (AUTO) 13.4 (2.1-6.9); NEUTROPHILS % 93.3 % (38.7-80.0); PLATELET COUNT 87 x10e3/uL (140-360); RED BLOOD COUNT 3.35 x10e6/uL (4.3-5.7); RED CELL DISTRIBUTION WIDTH 16.2 % (11.7-14.4)
[2021-12-10 06:04] LABS: ALBUMIN 2.3 g/dL (3.5-5.0); ALBUMIN/GLOBULIN RATIO 0.8 (0.8-2.0); ANION GAP 13.7 mmol/L (8-16); CALCIUM 8.6 mg/dL (8.4-10.2); CREATININE, SERUM 1.54 mg/dL (0.72-1.25); POTASSIUM 3.7 mmol/L (3.5-5.1)
[2021-12-10] MEDS ORDERED: FUROSEMIDE INJ 10 MG/ML 4 ML VIAL IV ONE ×2 (08:30→16:00)
[2021-12-10] MEDS ORDERED: BISACODYL 10 MG SUPP PR ONE (08:30)
[2021-12-10] MEDS: CARVEDILOL 3.125 MG TAB PO SCH ×2 (08:42→20:29)
[2021-12-10] MEDS: DEXAMETHASONE SOD PHOS 10 MG/1 ML VIAL IV SCH (08:43)
[2021-12-10] MEDS: ALLOPURINOL 300 MG TAB PO SCH (08:44)
[2021-12-10] MEDS: ZINC SULFATE 50 MG CAP PO SCH (08:44)
[2021-12-10] MEDS: HYDRALAZINE HCL 25 MG TAB PO SCH ×2 (08:44→20:28)
[2021-12-10] MEDS: ASCORBIC ACID 500 MG TAB PO SCH ×2 (08:44→20:29)
[2021-12-10] MEDS: MYCOPHENOLATE MOFETIL 250 MG CAP NG SCH ×2 (09:15→16:30)
[2021-12-10] MEDS ORDERED: HEPARIN 25,000 UNIT 1,300 UNIT in DEXTROSE 5% 250ML 250 ML IV SCH (13:45)
[2021-12-10] MEDS: HEPARIN 25,000 UNIT 1,300 UNIT in DEXTROSE 5% 250ML 250 ML IV SCH ×2 (15:59→23:45)
[2021-12-10 16:32] LABS: ALBUMIN 2.1 g/dL (3.5-5.0); ALBUMIN/GLOBULIN RATIO 0.8 (0.8-2.0); ANION GAP 12.7 mmol/L (8-16); CREATININE, SERUM 1.5 mg/dL (0.72-1.25); POTASSIUM 3.7 mmol/L (3.5-5.1)
[2021-12-10] MEDS: CEFTRIAXONE 2 GM in SODIUM CHLORIDE 0.9% 100 ML IV SCH (20:27)
[2021-12-10] MEDS ORDERED: CYCLOSPORINE 250 MG/5 ML AMP IV SCH (21:00)
[2021-12-11] VITALS (47 sets, daily range): BP systolic 114–166; BP diastolic 50–73
[2021-12-11] MEDS: SODIUM CHLORIDE 0.9% IV SCH ×6 (00:14→22:22)
[2021-12-11] MEDS: HUMAN IV SCH ×4 (00:14→04:09)
[2021-12-11] MEDS: INSULIN REGULAR IV SCH ×4 (00:14→04:09)
[2021-12-11] MEDS: [UNRECOGNIZED DRUG - OTHER] IV SCH ×4 (00:14→04:09)
[2021-12-11] MEDS: METOCLOPRAMIDE HCL 10 MG/2ML VIAL IV SCH ×4 (00:46→18:00)
[2021-12-11 06:07] LABS: BASOPHILS % 0.1 % (0.0-1.0); HEMATOCRIT 27.4 % (38.2-49.6); HEMOGLOBIN 8.6 g/dL (14.0-18.0); LYMPHOCYTES # (AUTO) 0.2 (1.0-3.2); MEAN CORPUSCULAR HEMOGLOBIN 29.9 pg (28-32); MEAN CORPUSCULAR HGB CONC 31.4 g/dL (31-35); MEAN CORPUSCULAR VOLUME 95.1 fL (81-99); MONOCYTES # (AUTO) 0.5 (0.2-0.8); MONOCYTES % 2.5 % (4.4-11.3); NEUTROPHILS # (AUTO) 18.6 (2.1-6.9); PLATELET COUNT 56 x10e3/uL (140-360); RED BLOOD COUNT 2.88 x10e6/uL (4.3-5.7); RED CELL DISTRIBUTION WIDTH 15.3 % (11.7-14.4)
[2021-12-11 06:22] LABS: ALBUMIN 1.9 g/dL (3.5-5.0); ALBUMIN/GLOBULIN RATIO 0.7 (0.8-2.0); ANION GAP 12.5 mmol/L (8-16); CALCIUM 7.5 mg/dL (8.4-10.2); CREATININE, SERUM 1.42 mg/dL (0.72-1.25); POTASSIUM 3.5 mmol/L (3.5-5.1)
[2021-12-11] MEDS: HEPARIN 25,000 UNIT 1,300 UNIT in DEXTROSE 5% 250ML 250 ML IV SCH (07:00)
[2021-12-11 07:15] LABS: LYMPHOCYTES % (MANUAL) 1 % (19-48); NEUTROPHILS % (MANUAL) 99 % (40-74); NUCLEATED RED BLOOD CELLS 1; PLATELET ESTIMATE MODERATELY DECREASED
[2021-12-11 07:16] LABS: PLATELET MORPHOLOGY COMMENT NORMAL; RBC MORPHOLOGY COMMENT NORMAL
[2021-12-11] MEDS: LEVOTHYROXINE SODIUM 50 MCG TAB PO SCH (07:23)
[2021-12-11] MEDS ORDERED: SODIUM CHLORIDE 0.9% 1000ML 1,000 ML IV ONE (09:15)
[2021-12-11] MEDS: CARVEDILOL 3.125 MG TAB PO SCH ×2 (09:21→17:00)
[2021-12-11] MEDS: DEXAMETHASONE SOD PHOS 10 MG/1 ML VIAL IV SCH (09:22)
[2021-12-11] MEDS: HYDRALAZINE HCL 25 MG TAB PO SCH ×2 (09:22→16:40)
[2021-12-11] MEDS: MYCOPHENOLATE MOFETIL 250 MG CAP NG SCH ×2 (09:22→16:39)
[2021-12-11] MEDS: Pantoprazole IV 80 MG in SODIUM CHLORIDE 0.9% 100 ML IV SCH ×2 (09:23→19:09)
[2021-12-11] MEDS: ZINC SULFATE 50 MG CAP PO SCH (09:23)
[2021-12-11] MEDS: ALLOPURINOL 300 MG TAB PO SCH (09:23)
[2021-12-11] MEDS: ASCORBIC ACID 500 MG TAB PO SCH ×2 (09:23→16:40)
[2021-12-11] MEDS: CYCLOSPORINE IV SCH ×2 (10:11→22:22)
[2021-12-11] MEDS: CEFTRIAXONE 2 GM in SODIUM CHLORIDE 0.9% 100 ML IV SCH (16:39)
[2021-12-11] MEDS: DEXTROSE 5% 1,000 ML IV SCH (22:22)
[2021-12-12] VITALS (54 sets, daily range): BP systolic 103–165; BP diastolic 44–66
[2021-12-12] MEDS: INSULIN REGULAR IV SCH ×2 (00:30)
[2021-12-12] MEDS: SODIUM CHLORIDE 0.9% IV SCH ×4 (00:30→21:16)
[2021-12-12] MEDS: HUMAN IV SCH ×2 (00:30)
[2021-12-12] MEDS: [UNRECOGNIZED DRUG - OTHER] IV SCH ×2 (00:30)
[2021-12-12] MEDS: METOCLOPRAMIDE HCL 10 MG/2ML VIAL IV SCH ×2 (00:40→07:11)
[2021-12-12] MEDS: Pantoprazole IV 80 MG in SODIUM CHLORIDE 0.9% 100 ML IV SCH (02:44)
[2021-12-12 06:23] LABS: BASOPHILS % 0.1 % (0.0-1.0); HEMATOCRIT 26.4 % (38.2-49.6); HEMOGLOBIN 8.5 g/dL (14.0-18.0); LYMPHOCYTES # (AUTO) 0.1 (1.0-3.2); LYMPHOCYTES % 0.6 % (18.0-39.1); MEAN CORPUSCULAR HEMOGLOBIN 30.5 pg (28-32); MEAN CORPUSCULAR HGB CONC 32.2 g/dL (31-35); MEAN CORPUSCULAR VOLUME 94.6 fL (81-99); MONOCYTES # (AUTO) 0.4 (0.2-0.8); MONOCYTES % 1.8 % (4.4-11.3); NEUTROPHILS # (AUTO) 22.2 (2.1-6.9); RED BLOOD COUNT 2.79 x10e6/uL (4.3-5.7); RED CELL DISTRIBUTION WIDTH 15.4 % (11.7-14.4)
[2021-12-12 06:35] LABS: PLATELET COUNT 52 x10e3/uL (140-360)
[2021-12-12 06:41] LABS: ALBUMIN 1.9 g/dL (3.5-5.0); ALBUMIN/GLOBULIN RATIO 0.7 (0.8-2.0); ANION GAP 14.1 mmol/L (8-16); CALCIUM 7.7 mg/dL (8.4-10.2); CREATININE, SERUM 1.72 mg/dL (0.72-1.25); POTASSIUM 3.1 mmol/L (3.5-5.1)
[2021-12-12 07:07] LABS: INR 1.26; PROTHROMBIN TIME 16.7 seconds (11.9-14.5)
[2021-12-12] MEDS: LEVOTHYROXINE SODIUM 50 MCG TAB PO SCH (07:11)
[2021-12-12] MEDS: ZINC SULFATE 50 MG CAP PO SCH (08:12)
[2021-12-12] MEDS: ALLOPURINOL 300 MG TAB PO SCH (08:12)
[2021-12-12] MEDS: CYCLOSPORINE IV SCH ×2 (08:12→21:16)
[2021-12-12] MEDS: MYCOPHENOLATE MOFETIL 250 MG CAP NG SCH ×2 (08:12→16:01)
[2021-12-12] MEDS: CARVEDILOL 3.125 MG TAB PO SCH ×2 (08:12→16:01)
[2021-12-12] MEDS: HYDRALAZINE HCL 25 MG TAB PO SCH ×2 (08:12→16:01)
[2021-12-12] MEDS: ASCORBIC ACID 500 MG TAB PO SCH ×2 (08:12→16:01)
[2021-12-12] MEDS: HEPARIN 25,000 UNIT 1,300 UNIT in DEXTROSE 5% 250ML 250 ML IV SCH ×2 (08:48→15:36)
[2021-12-12] MEDS ORDERED: DEXTROSE 50% SYRINGE 50 ML IV PRN (09:30)
[2021-12-12] MEDS: INSULIN REGULAR, HUMAN 100 UNIT/1 ML SQ SCH ×3 (11:44→21:21)
[2021-12-12] MEDS: INSULIN GLARGINE 100 UNITS/ML VIAL SQ SCH (21:20)
[2021-12-13] VITALS (43 sets, daily range): BP systolic 80–146; BP diastolic 39–65
[2021-12-13 06:08] LABS: BASOPHILS % 0.1 % (0.0-1.0); EOSINOPHILS % 0.1 % (0.0-6.0); HEMATOCRIT 25.6 % (38.2-49.6); HEMOGLOBIN 8.1 g/dL (14.0-18.0); LYMPHOCYTES # (AUTO) 0.2 (1.0-3.2); LYMPHOCYTES % 0.6 % (18.0-39.1); MEAN CORPUSCULAR HEMOGLOBIN 30.2 pg (28-32); MEAN CORPUSCULAR HGB CONC 31.6 g/dL (31-35); MEAN CORPUSCULAR VOLUME 95.5 fL (81-99); MONOCYTES # (AUTO) 0.3 (0.2-0.8); MONOCYTES % 1.2 % (4.4-11.3); NEUTROPHILS # (AUTO) 22.4 (2.1-6.9); NEUTROPHILS % 96.8 % (38.7-80.0); RED BLOOD COUNT 2.68 x10e6/uL (4.3-5.7); RED CELL DISTRIBUTION WIDTH 16.4 % (11.7-14.4)
[2021-12-13 06:13] LABS: PLATELET COUNT 44 x10e3/uL (140-360)
[2021-12-13] MEDS: LEVOTHYROXINE SODIUM 50 MCG TAB PO SCH (06:28)
[2021-12-13 06:29] LABS: ALBUMIN 1.6 g/dL (3.5-5.0); ALBUMIN/GLOBULIN RATIO 0.6 (0.8-2.0); ANION GAP 15.2 mmol/L (8-16); CALCIUM 7.6 mg/dL (8.4-10.2); CREATININE, SERUM 1.99 mg/dL (0.72-1.25); POTASSIUM 3.2 mmol/L (3.5-5.1)
[2021-12-13] MEDS: INSULIN REGULAR, HUMAN 100 UNIT/1 ML SQ SCH ×4 (07:57→21:19)
[2021-12-13 08:10] LABS: ANISOCYTOSIS SLIGHT; LYMPHOCYTES % (MANUAL) 2 % (19-48); MONOCYTES % (MANUAL) 2 % (3.4-9.0); NEUTROPHILS % (MANUAL) 96 % (40-74); PLATELET ESTIMATE MARKEDLY DECREASED; PLATELET MORPHOLOGY COMMENT NORMAL; RBC MORPHOLOGY COMMENT NORMAL
[2021-12-13] MEDS: CARVEDILOL 3.125 MG TAB PO SCH ×2 (08:16→16:54)
[2021-12-13] MEDS: HYDRALAZINE HCL 25 MG TAB PO SCH ×2 (08:16→16:54)
[2021-12-13] MEDS: CYCLOSPORINE IV SCH ×2 (08:16→21:19)
[2021-12-13] MEDS: ASCORBIC ACID 500 MG TAB PO SCH ×2 (08:16→16:54)
[2021-12-13] MEDS: SODIUM CHLORIDE 0.9% IV SCH ×2 (08:16→21:19)
[2021-12-13] MEDS: ZINC SULFATE 50 MG CAP PO SCH (08:16)
[2021-12-13] MEDS: MYCOPHENOLATE MOFETIL 250 MG CAP NG SCH ×2 (08:16→16:53)
[2021-12-13] MEDS: ALLOPURINOL 300 MG TAB PO SCH (08:17)
[2021-12-13 09:49] LABS: ABG HCO3 18 mmol/L (22-26); ABG PCO2 30 mmHg (35-45); ABG PH 7.37 (7.35-7.45); ABG PO2 79 mmHg (80-105); ABG TCO2 18
[2021-12-13] MEDS: ALBUTEROL/IPRATROPIUM 3 ML NEB NEB PRN ×2 (10:00→22:40)
[2021-12-13] MEDS ORDERED: FUROSEMIDE INJ 10 MG/ML 4 ML VIAL IV ONE (10:15)
[2021-12-13] MEDS: FUROSEMIDE INJ 100 MG in SODIUM CHLORIDE 0.9% 90 ML IV SCH ×3 (10:47→19:57)
[2021-12-13] MEDS ORDERED: POTASSIUM CHL 40 MEQ in SODIUM CHLORIDE 0.9% 250ML 250 ML IV ONE (15:00)
[2021-12-13] MEDS: CITRIC ACID/SODIUM CITRATE 30 ML UDC NG SCH ×2 (15:11→21:20)
[2021-12-13] MEDS: INSULIN GLARGINE 100 UNITS/ML VIAL SQ SCH (21:20)
[2021-12-13] MEDS: HEPARIN 25,000 UNIT 1,300 UNIT in DEXTROSE 5% 250ML 250 ML IV SCH (21:23)
[2021-12-14] VITALS (98 sets, daily range): BP systolic 30–167; BP diastolic 20–69
[2021-12-14] MEDS ORDERED: NOREPINEPHRINE 8 MG/D5W 250 ML 250 ML ONE (00:50)
[2021-12-14] MEDS ORDERED: ROCURONIUM BROMIDE 0 ML IV ONE (01:19)
[2021-12-14] MEDS ORDERED: DEXMEDETOMIDINE 400MCG/NS100ML 100 ML IV ONE (01:29)
[2021-12-14] MEDS: NOREPINEPHRINE 8 MG/D5W 250 ML 250 ML IV SCH ×3 (01:40→11:40)
[2021-12-14] MEDS ORDERED: ALBUMIN 25% 25GM 100ML 200 ML ONE (01:54)
[2021-12-14] MEDS ORDERED: VASOPRESSIN INJ 20 UNIT/ML VIAL ONE (01:58)
[2021-12-14] MEDS ORDERED: SODIUM CHLORIDE 0.9% 100 ML ONE (01:58)
[2021-12-14] MEDS: PHENYLEPHRINE 10MG/ML VIAL 40 MG in DEXTROSE 5% 250ML 250 ML IV PRN ×4 (02:09→17:07)
[2021-12-14] MEDS ORDERED: PHENYLEPHRINE HCL IN 0.9% NACL 250 ML IV ONE (02:20)
[2021-12-14 02:29] LABS: ABG HCO3 20 mmol/L (22-26); ABG PCO2 42 mmHg (35-45); ABG PH 7.29 (7.35-7.45); ABG PO2 63 mmHg (80-105); ABG TCO2 21
[2021-12-14 02:32] LABS: ABG PH 7.21 (7.35-7.45)
[2021-12-14 02:33] LABS: ABG HCO3 23 mmol/L (22-26); ABG PCO2 59 mmHg (35-45); ABG PO2 51 mmHg (80-105); ABG TCO2 25
[2021-12-14] MEDS ORDERED: VASOPRESSIN 60 UNIT in DEXTROSE 5% 50ML 57 ML IV PRN (02:45)
[2021-12-14] MEDS ORDERED: SODIUM CHLORIDE 0.9% 1000ML 1,000 ML ONE ×3 (03:36→10:47)
[2021-12-14] MEDS ORDERED: MANNITOL 25% 12.5GM/50ML 100 ML ONE (03:36)
[2021-12-14] MEDS ORDERED: HEPARIN SOD (PORCINE) 1000 UNIT/ML SDV ONE ×2 (04:44→14:08)
[2021-12-14] MEDS ORDERED: DEXMEDETOMIDINE 400MCG/NS100ML 100 ML IV PRN (06:00)
[2021-12-14] MEDS: LEVOTHYROXINE SODIUM 50 MCG TAB PO SCH (07:01)
[2021-12-14] MEDS: INSULIN REGULAR, HUMAN 100 UNIT/1 ML SQ SCH ×3 (07:30→16:20)
[2021-12-14 07:48] LABS: BASOPHILS % 0.1 % (0.0-1.0); EOSINOPHILS % 0.2 % (0.0-6.0); HEMATOCRIT 23.8 % (38.2-49.6); HEMOGLOBIN 7.4 g/dL (14.0-18.0); LYMPHOCYTES # (AUTO) 0.1 (1.0-3.2); LYMPHOCYTES % 0.8 % (18.0-39.1); MEAN CORPUSCULAR HEMOGLOBIN 30.6 pg (28-32); MEAN CORPUSCULAR HGB CONC 31.1 g/dL (31-35); MEAN CORPUSCULAR VOLUME 98.3 fL (81-99); MONOCYTES # (AUTO) 0.2 (0.2-0.8); NEUTROPHILS # (AUTO) 16.4 (2.1-6.9); NEUTROPHILS % 97.2 % (38.7-80.0); RED BLOOD COUNT 2.42 x10e6/uL (4.3-5.7); RED CELL DISTRIBUTION WIDTH 16.8 % (11.7-14.4)
[2021-12-14 07:52] LABS: ABG HCO3 25 mmol/L (22-26); ABG PCO2 49 mmHg (35-45); ABG PH 7.33 (7.35-7.45); ABG PO2 68 mmHg (80-105); ABG TCO2 27
[2021-12-14 08:04] LABS: PLATELET COUNT 43 x10e3/uL (140-360)
[2021-12-14 08:08] LABS: ALBUMIN 2.3 g/dL (3.5-5.0); ALBUMIN/GLOBULIN RATIO 0.9 (0.8-2.0); ANION GAP 15.9 mmol/L (8-16); CALCIUM 7.9 mg/dL (8.4-10.2)
[2021-12-14] MEDS: SODIUM CHLORIDE 0.9% IV SCH ×2 (08:24→12:17)
[2021-12-14] MEDS: MYCOPHENOLATE MOFETIL 250 MG CAP NG SCH ×2 (08:24→16:59)
[2021-12-14] MEDS: CYCLOSPORINE IV SCH ×2 (08:24→12:17)
[2021-12-14] MEDS: ZINC SULFATE 50 MG CAP PO SCH (08:24)
[2021-12-14] MEDS: ASCORBIC ACID 500 MG TAB PO SCH ×2 (08:24→16:59)
[2021-12-14] MEDS: CITRIC ACID/SODIUM CITRATE 30 ML UDC NG SCH ×2 (08:24→15:24)
[2021-12-14] MEDS: ALLOPURINOL 300 MG TAB PO SCH (08:24)
[2021-12-14 08:37] LABS: BAND NEUTROPHILS % (MANUAL) 1 %; NEUTROPHILS % (MANUAL) 99 % (40-74); NUCLEATED RED BLOOD CELLS 6
[2021-12-14 08:46] LABS: POTASSIUM 3.9 mmol/L (3.5-5.1)
[2021-12-14 10:53] LABS: MAGNESIUM 2.5 MG/DL (1.3-2.1); PHOSPHORUS 4.5 MG/DL (2.3-4.7)
[2021-12-14] MEDS ORDERED: LORAZEPAM INJ 2 MG/ML VIAL IV ONE (12:30)
[2021-12-14] MEDS ORDERED: WATER STERILE 10 ML VIAL ONE (12:58)
[2021-12-14] MEDS ORDERED: ETOMIDATE 2 MG/ML 10 ML INJ IV ONE (12:58)
[2021-12-14] MEDS ORDERED: VECURONIUM BROMIDE FOR INJ 20 MG VIAL ONE (12:58)
[2021-12-14] MEDS ORDERED: ALBUMIN 25% 12.5GM 50ML 150 ML IV ONE (13:37)
[2021-12-14] MEDS ORDERED: HYDROCORTISONE SOD SUCCINATE 100 MG VIAL IV SCH (14:00)
[2021-12-14 14:07] LABS: ABG PCO2 49 mmHg (35-45); ABG PH 7.33 (7.35-7.45); ABG PO2 54 mmHg (80-105)
[2021-12-14 14:08] LABS: ABG HCO3 26 mmol/L (22-26); ABG TCO2 27
[2021-12-14] MEDS ORDERED: ALBUMIN 25% 12.5GM 0.25 GM/ML BTL IV PRN (14:15)
[2021-12-14] MEDS ORDERED: HEPARIN SOD (PORCINE) 1000 UNIT/ML SDV IV PRN (14:15)
[2021-12-14] MEDS ORDERED: SODIUM CHLORIDE 0.9% 1000ML 2,000 ML IV PRN (14:15)
[2021-12-14] MEDS ORDERED: EPINEPHRINE HCL SYRINGE IV ONE (14:24)
[2021-12-14] MEDS ORDERED: ATROPINE SULFATE 0.1 MG/ML 10ML SYR IV ONE (14:24)
== END 2021-12-15 08:03 | disposition expired | DRG 871 ==
LOC: ER 13:05 → ERHOLD 14:24 → ICU 12-03 02:31 → COVIDICU 12-14 23:14
PROVIDERS: ADMIT Internal Medicine; ATTEND Internal Medicine
PROC: 02HV33Z Insertion of Infusion Device into Superior Vena Cava, Percutaneous Approach (ICD-10-PCS; 2021-12-02)
PROC: XW043E5 Introduction of Remdesivir Anti-infective into Central Vein, Percutaneous Approach, New Technology Group 5 (ICD-10-PCS; 2021-12-03)
PROC: 05HY33Z Insertion of Infusion Device into Upper Vein, Percutaneous Approach (ICD-10-PCS; 2021-12-05)
PROC: 30243K1 Transfusion of Nonautologous Frozen Plasma into Central Vein, Percutaneous Approach (ICD-10-PCS; 2021-12-05)
PROC: 5A09457 Assistance with Respiratory Ventilation, 24-96 Consecutive Hours, Continuous Positive Airway Pressure (ICD-10-PCS; 2021-12-07)
PROC: 5A0935A Assistance with Respiratory Ventilation, Less than 24 Consecutive Hours, High Flow/Velocity Cannula (ICD-10-PCS; 2021-12-08)
PROC: 02HV33Z Insertion of Infusion Device into Superior Vena Cava, Percutaneous Approach (ICD-10-PCS; principal; 2021-12-10)
PROC: 5A1935Z Respiratory Ventilation, Less than 24 Consecutive Hours (ICD-10-PCS; 2021-12-14)
PROC: 0BH18EZ Insertion of Endotracheal Airway into Trachea, Via Natural or Artificial Opening Endoscopic (ICD-10-PCS; 2021-12-14)
PROC: 5A1D70Z Performance of Urinary Filtration, Intermittent, Less than 6 Hours Per Day (ICD-10-PCS; 2021-12-14)
PROC: 3E043XZ Introduction of Vasopressor into Central Vein, Percutaneous Approach (ICD-10-PCS; 2021-12-14)
DX: A41.89 Other specified sepsis (principal); U07.1 COVID-19; E11.10 Type 2 diabetes mellitus with ketoacidosis without coma; J12.82 Pneumonia due to coronavirus disease 2019; J96.01 Acute respiratory failure with hypoxia; N17.0 Acute kidney failure with tubular necrosis; I50.23 Acute on chronic systolic (congestive) heart failure; G93.41 Metabolic encephalopathy; E87.0 Hyperosmolality and hypernatremia; I13.0 Hypertensive heart and chronic kidney disease with heart failure and stage 1 through stage 4 chronic kidney disease, or unspecified chronic kidney disease; K92.2 Gastrointestinal hemorrhage, unspecified; D68.9 Coagulation defect, unspecified; D84.821 Immunodeficiency due to drugs; T86.19 Other complication of kidney transplant; R65.20 Severe sepsis without septic shock; E78.00 Pure hypercholesterolemia, unspecified; Z95.810 Presence of automatic (implantable) cardiac defibrillator; E11.22 Type 2 diabetes mellitus with diabetic chronic kidney disease; I12.9 Hypertensive chronic kidney disease with stage 1 through stage 4 chronic kidney disease, or unspecified chronic kidney disease; Z79.899 Other long term (current) drug therapy; I25.2 Old myocardial infarction; I25.10 Atherosclerotic heart disease of native coronary artery without angina pectoris; Z95.1 Presence of aortocoronary bypass graft; N18.31 Chronic kidney disease, stage 3a; D64.9 Anemia, unspecified; Z79.01 Long term (current) use of anticoagulants; Z95.2 Presence of prosthetic heart valve; D69.6 Thrombocytopenia, unspecified
CPT/HCPCS: 31500; 36415; 36569; 36584; 36600; 51700; 71045; 74018; 76770; 80048; 80053; 81001; 82805; 82948; 83735; 83880; 84100; 84165; 84484; 85025; 85379; 85610; 85730; 86704; 86706; 86850; 86900; 86920; 87040; 87070; 87205; 87340; 93005; 93306; 93970; 93971; 94002; 94640; 94660; 94799; 96372; 99251; 99285; J0171; J0248; J0360; J0456; J0696; J1100; J1644; J1650; J1720; J1815; J1817; J1940; J2060; J2150; J2370; J2405; J2765; J3430; J3480; J3486; J7030; J7050; J7070; J7516; P9016; P9017; P9047; U0002